=== PATIENT | male | born 1965 | race Caucasian/White ===

== ENCOUNTER 2017-04-21 21:47 | Observation (INO) | payer OTHER, MEDICARE ==
[~2017-04-21] VITALS: Ht 190.5 cm; Wt 108.3 kg
[~2017-04-21 21:47] MED LIST: BENZ100C4 PO; CITA40 PO; DUONI INH; FOLITAB6 PO; FURO20 PO; GABA250S PO; LACT20SO4 PO; MORP10S PO; MULT-65 PO; NADO20TA PO; PRIL40CA PO; PROC1TAB8 PO; SPIR100 PO; XANA0.5T PO
[2017-04-21 22:00] VITALS: BP 103/65; PULSE 73; RESP 16; TEMP 97.8; O2SAT 98
[2017-04-21] MEDS ORDERED: CITA40TA4 PO (22:25)
[2017-04-21] MEDS ORDERED: FOLI800T PO (22:25)
[2017-04-21] MEDS ORDERED: GABA600T PO (22:25)
[2017-04-21] MEDS ORDERED: ALPR0.5T3 PO (22:25)
[2017-04-21] MEDS ORDERED: NADO20TA PO (22:25)
[2017-04-21] MEDS ORDERED: FURO1TAB60 PO (22:25)
--- NOTE | 2017-04-21 22:59 | PD ---
HPI Chief Complaint: Skin Problem Time Seen by Provider: 22:45 Travel History International Travel<30 days: No Contact w/Intl Traveler<30days: No Traveled to known affect area: No History of Present Illness HPI 52-year-old male with history of cirrhosis secondary to alcohol abuse, here for evaluation of right lower extremity erythema and possible infection. The patient has an obvious wound on his distal right second toe with diffuse edema and erythema to this toe and has red streaks up his leg. He reports that he has had a wound on his toe for several days now, however today he noticed red streaks up his right leg. He denies pain. He does not believe he has had a fever. He denies history of diabetes. PFSH Past Medical History Anxiety: Yes Depression: Yes Cancer: No Cardiovascular Problems: No Diminished Hearing: No Endocrine: No Gastrointestinal Disorders: Yes Genitourinary: No Hepatitis: Yes Immune Disorder: No Implanted Vascular Access Dvce: No Musculoskeletal: No Neurologic: Yes (TURRETS SYNDROME) Psychiatric: Yes Reproductive: No Respiratory: No Tetanus Vaccination: Unknown Influenza Vaccination: No Past Surgical History Abdominal Surgery: Yes (HERNIA REPAIR) Oral Surgery: Yes (TONSILLECTOMY) Pacemaker: No Other Surgery: Yes (HERNIA REPAIR 2007) Social History Alcohol Use: Yes (FORMER DRINKER SOBER 5 MONTHS) Tobacco Use: No Substance Use: No Allergies-Medications (Allergen,Severity, Reaction): Coded Allergies: No Known Allergies (Unverified Adverse Reaction, Unknown, 04/21/17) Reported Meds & Prescriptions Reported Meds & Active Scripts Active Reported Nadolol 20 Mg Tab 20 Mg PO DAILY Folic Acid 0.8 Mg Tab 800 Mcg PO DAILY Alprazolam 0.5 Mg Tab 0.5 Mg PO Q8H PRN Citalopram (Citalopram Hydrobromide) 40 Mg Tab 40 Mg PO DAILY Lasix (Furosemide) 40 Mg Tab 40 Mg PO DAILY Gabapentin 600 Mg Tab 600 Mg PO BID Review of Systems Except as stated in HPI: all other systems reviewed are Neg Physical Exam Narrative GENERAL: Well-developed, well-nourished, comfortable, no apparent distress. SKIN: Right second toe with diffuse erythema and edema with a distal open wound with purulence. There are red streaks and warmth up the right foot tracking up to the right knee. There is no crepitus. HEAD: Atraumatic. Normocephalic. EYES: Pupils equal and round. No scleral icterus. No injection or drainage. ENT: Mucous membranes pink and moist. NECK: Trachea midline. No JVD. CARDIOVASCULAR: Regular rate and rhythm. Bilateral dorsalis pedis pulses are palpable, 1+. RESPIRATORY: No accessory muscle use. Clear to auscultation. Breath sounds equal bilaterally. GASTROINTESTINAL: Abdomen soft, non-tender, nondistended. MUSCULOSKELETAL: No obvious deformities. No clubbing. No cyanosis. Mild right foot and leg edema with skin exam as above. No crepitus. All compartments in the right lower extremity are supple. NEUROLOGICAL: Awake and alert. No obvious cranial nerve deficits. Motor grossly within normal limits. Normal speech. PSYCHIATRIC: Appropriate mood and affect; insight and judgment normal. Data Data Last Documented VS Vital Signs Date Time Temp Pulse Resp B/P (MAP) Pulse Ox O2 Delivery O2 Flow Rate FiO2 04/21/17 23:31 70 18 105/60 (75) 98 Room Air 04/21/17 22:00 97.8 Orders Orders Sepsis Workup Initiated (04/21/17 ) Complete Blood Count With Diff (04/21/17 22:50) Comprehensive Metabolic Panel (04/21/17 22:50) Prothrombin Time / Inr (Pt) (04/21/17 22:50) Act Partial Throm Time (Ptt) (04/21/17 22:50) Lactic Acid Sepsis Protocol (04/21/17 22:50) Blood Culture (04/21/17 22:50) Ecg Monitoring (04/21/17 22:50) Iv Access Insert/Monitor (04/21/17 22:50) Oximetry (04/21/17 22:50) Vancomycin Inj (Vancomycin Inj) (04/21/17 23:00) Foot, Complete (Lcc5opd) (04/21/17 ) Westergren Sedimentation Rate (04/21/17 22:50) C-Reactive Protein (Crp) (04/21/17 22:50) Wound Culture And Gram Stain (04/21/17 22:55) Labs Laboratory Tests Test 04/21/17 22:40 04/21/17 23:00 White Blood Count 5.7 TH/MM3 Red Blood Count 4.35 MIL/MM3 Hemoglobin 13.5 GM/DL Hematocrit 40.3 % Mean Corpuscular Volume 92.8 FL Mean Corpuscular Hemoglobin 31.0 PG Mean Corpuscular Hemoglobin Concent 33.5 % Red Cell Distribution Width 13.2 % Platelet Count 100 TH/MM3 Mean Platelet Volume 10.2 FL Neutrophils (%) (Auto) 74.4 % Lymphocytes (%) (Auto) 12.4 % Monocytes (%) (Auto) 11.9 % Eosinophils (%) (Auto) 0.8 % Basophils (%) (Auto) 0.5 % Neutrophils # (Auto) 4.3 TH/MM3 Lymphocytes # (Auto) 0.7 TH/MM3 Monocytes # (Auto) 0.7 TH/MM3 Eosinophils # (Auto) 0.0 TH/MM3 Basophils # (Auto) 0.0 TH/MM3 CBC Comment DIFF FINAL Differential Comment Erythrocyte Sedimentation Rate 28 mm/hr Prothrombin Time 11.9 SEC Prothromb Time International Ratio 1.2 RATIO Activated Partial Thromboplast Time 25.3 SEC Blood Urea Nitrogen 15 MG/DL Creatinine 0.82 MG/DL Random Glucose 92 MG/DL Total Protein 7.4 GM/DL Albumin 3.4 GM/DL Calcium Level 8.8 MG/DL Alkaline Phosphatase 75 U/L Aspartate Amino Transf (AST/SGOT) 18 U/L Alanine Aminotransferase (ALT/SGPT) 25 U/L Total Bilirubin 0.7 MG/DL Sodium Level 136 MEQ/L Potassium Level 4.1 MEQ/L Chloride Level 102 MEQ/L Carbon Dioxide Level 29.2 MEQ/L Anion Gap 5 MEQ/L Estimat Glomerular Filtration Rate 98 ML/MIN Lactic Acid Level 1.3 mmol/L MDM Medical Decision Making Medical Screen Exam Complete: Yes Emergency Medical Condition: Yes Differential Diagnosis Cellulitis, toe abscess, osteomyelitis, sepsis, Narrative Course Vital signs show heart rate 73, blood pressure 103/65, pulse ox 90% on room air , oral temp of 97.8F. CBC: WBC 5.7, hemoglobin 13.5, hematocrit 40.3, platelets 100, neutrophils 74.4% . CMP is unremarkable. Lactic acid is 1.3. ESR is 28. Right foot x-ray: CONCLUSION: 1. Soft tissue ulceration distally the second toe without radiographic evidence of bone destruction or foreign body. 2. Second through fifth hammertoe. 3. Chronic appearing arthropathy at Lisfranc joint and the first metatarsal phalangeal joints are sesamoids. Patient and the patient's were made aware of all findings. His right second toe is diffusely swollen with distal ulceration with purulence. He has warmth and erythema throughout his right foot and leg. All compartments in the right lower extremity are supple. There is no crepitus to his right foot/leg. Although the patient's labs are benign, his clinical exam is impressive, and I believe that the patient may need to have his right second toe debrided in the OR by podiatry. He also has signs of lymphangitis and may have osteomyelitis in the right second toe. He was given 1 g of IV vancomycin will be admitted for further IV antibiotic therapy and podiatry consultation. Both the patient and the patient's were made aware of all findings and plan for admission. Case discussed with hospitalist Dr. Carter who will admit the patient to the hospitalist service. Diagnosis Primary Impression: Toe ulcer, right Qualified Codes: L97.519 - Non-pressure chronic ulcer of other part of right foot with unspecified severity Additional Impressions: Cellulitis of right lower extremity Acute lymphangitis of right lower extremity R/O Osteomyelitis Admitting Information Admitting Physician Requests: Admit Parker Huffman MD Apr 21, 2017 22:59
[2017-04-21] MEDS ORDERED: VANCOMYCIN INJ 1,000 MG in SODIUM CHLOR 0.9% 250 ML INJ 250 ML IV ONE (23:00)
[2017-04-21 23:25] LABS: AUTOMATED NEUTROPHIL # 4.3 TH/MM3 (1.8-7.7); BASOPHIL % 0.5 % (0.0-2.0); EOSINOPHIL % 0.8 % (0.0-4.0); HEMATOCRIT 40.3 % (39.0-51.0); HEMOGLOBIN 13.5 GM/DL (13.0-17.0); LYMPH % 12.4 % (9.0-44.0); LYMPHOCYTE # 0.7 TH/MM3 (1.0-4.8); MEAN CELL VOLUME 92.8 FL (80.0-100.0); MEAN CORPUSCULAR HGB CONC 33.5 % (32.0-36.0); MEAN PLATELET VOLUME 10.2 FL (7.0-11.0); MONO % 11.9 % (0.0-8.0); MONOCYTE # 0.7 TH/MM3 (0-0.9); NEUT % 74.4 % (16.0-70.0); PLATELET COUNT 100 TH/MM3 (150-450); RED BLOOD COUNT 4.35 MIL/MM3 (4.50-5.90); RED CELL DISTRIBUTION WIDTH 13.2 % (11.6-17.2); WHITE BLOOD COUNT 5.7 TH/MM3 (4.0-11.0)
[2017-04-21 23:30] VITALS: O2SAT 97
[2017-04-21 23:31] VITALS: BP 105/60; PULSE 70; RESP 18; O2SAT 98
[2017-04-21 23:31] LABS: CHLORIDE 102 MEQ/L (98-107); SODIUM (NA) 136 MEQ/L (136-145)
[2017-04-21 23:34] LABS: CALCIUM 8.8 MG/DL (8.5-10.1)
[2017-04-21 23:35] LABS: ALBUMIN 3.4 GM/DL (3.4-5.0); BICARBONATE 29.2 MEQ/L (21.0-32.0); BLOOD UREA NITROGEN 15 MG/DL (7-18); GLUCOSE,RANDOM 92 MG/DL (74-106)
[2017-04-21 23:36] LABS: INTERNATIONAL NORMALIZED RATIO 1.2 RATIO; PROTHROMBIN TIME - PATIENT 11.9 SEC (9.8-11.6)
[2017-04-21 23:38] LABS: ALT (GPT) 25 U/L (12-78); AST (GOT) 18 U/L (15-37); CREATININE 0.82 MG/DL (0.60-1.30); GLOMERULAR FILTRATION RATE 98 ML/MIN (>89)
[2017-04-21 23:39] LABS: TOTAL BILIRUBIN ADULT 0.7 MG/DL (0.2-1.0)
[2017-04-21 23:40] LABS: TOTAL PROTEIN 7.4 GM/DL (6.4-8.2)
[2017-04-21 23:41] LABS: ALKALINE PHOSPHATASE 75 U/L (45-117)
--- NOTE | 2017-04-21 23:46 | RADRPT ---
EXAM DATE/TIME: 04/21/2017 23:11 [facility] COMPARISON: No previous studies available for comparison. INDICATIONS : Open sore on right 2nd digit for 3 months with no pain MEDICAL HISTORY : None. SURGICAL HISTORY : None. ENCOUNTER: Initial ACUITY: 3 months PAIN SCORE: 0/10 LOCATION: Right 2nd digit FINDINGS: There is alteration distally of the soft tissues of the second toe. No radiopaque foreign body seen. No or separable bone destruction. There is second through fifth hammertoe. 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 There is also mild to moderate osteoarthritis of the first metatarsophalangeal joint and sesamoids. CONCLUSION: 1. Soft tissue ulceration distally the second toe without radiographic evidence of bone destruction o r foreign body. 2. Second through fifth hammertoe. 3. Chronic appearing arthropathy at Lisfranc joint and the first metatarsal phalangeal joints are ses amoids. Donte Arambula MD on April 21, 2017 at 23:43 Board Certified Radiologist. This report was verified electronically.
[2017-04-22] MEDS ORDERED: NALOXONE HCL 0.4 MG/ML AMP IV PUSH PRN
[2017-04-22] MEDS ORDERED: LACTULOSE SYRUP 20 GM/30 ML CUP PO PRN
[2017-04-22] MEDS ORDERED: SENNOSIDES 8.6 MG TAB PO PRN
[2017-04-22] MEDS ORDERED: MAGNESIUM HYDROXIDE SUSP 30 ML CUP PO PRN
[2017-04-22] MEDS ORDERED: SODIUM CHLORIDE 0.9% FLUSH 10 ML FLUSH IV FLUSH PRN
[2017-04-22] MEDS ORDERED: BISACODYL 10 MG SUPP RECTAL PRN
[2017-04-22] MEDS ORDERED: Vancomycin Consult Pharmacy 1 EA OTHER SCH
[2017-04-22] MEDS ORDERED: ONDANSETRON HCL 4 MG/2 ML VIAL IVP PRN
[2017-04-22 00:37] VITALS: BP 108/62; PULSE 68; RESP 18; O2SAT 98
[2017-04-22 00:41] VITALS: BP 102/68; PULSE 64; RESP 20; TEMP 97.3; O2SAT 99
[2017-04-22] MEDS ORDERED: VANCOMYCIN 1 GM/200 ML PREMIX IV ONE (00:45)
[2017-04-22 01:03] LABS: C-REACTIVE PROTEIN 4.63 MG/DL (0.00-0.30)
[2017-04-22] MEDS: PIPERACIL-TAZO 3.375 GM PREMIX 50 ML IV SCH ×5 (02:10→23:17)
[2017-04-22 07:21] LABS: AUTOMATED NEUTROPHIL # 3.8 TH/MM3 (1.8-7.7); BASOPHIL # 0.1 TH/MM3 (0-0.2); BASOPHIL % 1.3 % (0.0-2.0); EOSINOPHIL # 0.1 TH/MM3 (0-0.4); EOSINOPHIL % 1.4 % (0.0-4.0); HEMATOCRIT 37.6 % (39.0-51.0); LYMPH % 17.2 % (9.0-44.0); LYMPHOCYTE # 0.9 TH/MM3 (1.0-4.8); MEAN CELL VOLUME 92.4 FL (80.0-100.0); MEAN CORPUSCULAR HGB CONC 34.7 % (32.0-36.0); MEAN PLATELET VOLUME 10.7 FL (7.0-11.0); MONO % 11.4 % (0.0-8.0); MONOCYTE # 0.6 TH/MM3 (0-0.9); NEUT % 68.7 % (16.0-70.0); PLATELET COUNT 99 TH/MM3 (150-450); RED BLOOD COUNT 4.07 MIL/MM3 (4.50-5.90); RED CELL DISTRIBUTION WIDTH 13.3 % (11.6-17.2); WHITE BLOOD COUNT 5.5 TH/MM3 (4.0-11.0)
[2017-04-22 07:27] LABS: CHLORIDE 100 MEQ/L (98-107); SODIUM (NA) 135 MEQ/L (136-145)
[2017-04-22 07:34] LABS: ALBUMIN 3.2 GM/DL (3.4-5.0); BICARBONATE 28.7 MEQ/L (21.0-32.0); CALCIUM 8.5 MG/DL (8.5-10.1); GLUCOSE,RANDOM 81 MG/DL (74-106)
[2017-04-22 07:35] LABS: BLOOD UREA NITROGEN 13 MG/DL (7-18)
[2017-04-22 07:38] LABS: ALT (GPT) 22 U/L (12-78); AST (GOT) 13 U/L (15-37); CREATININE 0.76 MG/DL (0.60-1.30); GLOMERULAR FILTRATION RATE 107 ML/MIN (>89)
[2017-04-22 07:39] LABS: TOTAL BILIRUBIN ADULT 0.9 MG/DL (0.2-1.0); TOTAL PROTEIN 7.2 GM/DL (6.4-8.2)
[2017-04-22 07:40] LABS: ALKALINE PHOSPHATASE 67 U/L (45-117)
[2017-04-22] MEDS ORDERED: ALPRAZolam 0.5 MG TAB PO PRN (08:45)
[2017-04-22 09:00] VITALS: BP 116/74; PULSE 70; RESP 16; TEMP 97.1; O2SAT 98
[2017-04-22] MEDS: HEPARIN SODIUM - SQ 10,000 UNITS/ML VIAL SQ SCH ×3 (09:11→21:50)
[2017-04-22] MEDS: DOCUSATE SODIUM 50 MG/SENNA 8.6 MG TAB PO SCH ×2 (09:13→21:00)
[2017-04-22] MEDS: SODIUM CHLORIDE 0.9% FLUSH 10 ML FLUSH IV FLUSH SCH ×2 (09:13→21:49)
[2017-04-22] MEDS: FUROSEMIDE 40 MG TAB PO SCH (09:19)
[2017-04-22] MEDS: CITALOPRAM HYDROBROMIDE 40 MG TAB PO SCH (09:19)
--- NOTE | 2017-04-22 09:20 | HHI.HP ---
[facility] Service [facility] Hospitalists Primary Care Physician Damaso Lima MD Admission Diagnosis right toe ulcer with cellulitis and lymphangitis, r/o osteomyelitis Diagnoses: Travel History International Travel<30 Days: No Contact w/Intl Traveler <30 Da: No Traveled to Known Affected Are: No History of Present Illness Patient is a 52-year-old male with past medical history of cirrhosis of the liver, EtOH abuse, neuropathy, depression/anxiety, history of Tourette's syndrome, presented to the emergency room with right lower extremity erythema. Patient states he does have recurrent infection of his second toe. Has not seen a anchor operator in many years, the last one he saw was Dr. Monge who had trimmed his toenail for him. He noticed that the nail has been getting bigger and bulky and he decided to cut it and peel it off. Yesterday when he woke up, he noted redness going up to his knee. He denies any pain. He denies any fevers or chills. He states that the ulceration at the base of his toe has not been draining however yesterday started draining clear fluid. They did get a swab in the emergency room. He has been cleaning it with hydrogen peroxide. Otherwise, he has no other complaints. He denies any chest pain, shortness of breath, nausea or vomiting, abdominal pain. Review of Systems Except as stated in HPI: all other systems reviewed are Neg Past Family Social History Past Medical History cirrhosis of the liver, EtOH abuse, neuropathy, depression/anxiety, history of Tourette's syndrome Past Surgical History Hernia repair with mesh, tonsillectomy Reported Medications Reported Meds & Active Scripts Active Reported Nadolol 20 Mg Tab 20 Mg PO DAILY Folic Acid 0.8 Mg Tab 800 Mcg PO DAILY Alprazolam 0.5 Mg Tab 0.5 Mg PO Q8H PRN Citalopram (Citalopram Hydrobromide) 40 Mg Tab 40 Mg PO DAILY Lasix (Furosemide) 40 Mg Tab 40 Mg PO DAILY Gabapentin 600 Mg Tab 600 Mg PO BID Allergies: Coded Allergies: No Known Allergies (Unverified Allergy, Unknown, 04/22/17) Family History Mother had osteoporosis. Father with heart problems Social History Quit drinking 5 years ago used to drink 12 packs daily for very long time. He does admit that he will occasionally have a beer and his last one was on Tuesday. He then tells me that he usually drinks 3 beers a month. Denies illegal drug use, quit smoking 8-9 years ago used to smoke a pack a day for 4 years Physical Exam Vital Signs Vital Signs Date Time Temp Pulse Resp B/P (MAP) Pulse Ox O2 Delivery O2 Flow Rate FiO2 04/22/17 00:41 97.3 64 20 102/68 (79) 99 04/22/17 00:38 68 18 98 04/22/17 00:37 68 18 108/62 (77) 98 Room Air 04/21/17 23:31 70 18 105/60 (75) 98 Room Air 04/21/17 23:30 97 04/21/17 22:25 73 18 04/21/17 22:00 97.8 73 16 103/65 (78) 98 Physical Exam GENERAL: This is a well-nourished, well-developed patient, laying in bed. he does have a tic SKIN: Right second toe with edema, skin/nail overgrowth, ulceration at the base w clear drainage. erythema noted on the right leg up to the knee EYES: Pupils equal round and reactive. Extraocular motions intact. ENT: Nose without drainage. Airway patent. NECK: Trachea midline. CARDIOVASCULAR: Regular rate and rhythm without murmurs RESPIRATORY: Clear to auscultation. Breath sounds equal bilaterally. No wheezes GASTROINTESTINAL: Abdomen soft, non-tender, nondistended. No guarding. MUSCULOSKELETAL: edema noted on the right lower ext, michael wrapped but this was removed to visualize extent of erythema. No calf tenderness. Negative Homans sign bilaterally. NEUROLOGICAL: Awake and alert. Cranial nerves II through XII intact. Motor and sensory grossly within normal limits. Normal speech. Laboratory Laboratory Tests Test 04/21/17 22:40 04/21/17 23:00 04/22/17 05:40 White Blood Count 5.7 5.5 Red Blood Count 4.35 4.07 Hemoglobin 13.5 13.0 Hematocrit 40.3 37.6 Mean Corpuscular Volume 92.8 92.4 Mean Corpuscular Hemoglobin 31.0 32.0 Mean Corpuscular Hemoglobin Concent 33.5 34.7 Red Cell Distribution Width 13.2 13.3 Platelet Count 100 99 Mean Platelet Volume 10.2 10.7 Neutrophils (%) (Auto) 74.4 68.7 Lymphocytes (%) (Auto) 12.4 17.2 Monocytes (%) (Auto) 11.9 11.4 Eosinophils (%) (Auto) 0.8 1.4 Basophils (%) (Auto) 0.5 1.3 Neutrophils # (Auto) 4.3 3.8 Lymphocytes # (Auto) 0.7 0.9 Monocytes # (Auto) 0.7 0.6 Eosinophils # (Auto) 0.0 0.1 Basophils # (Auto) 0.0 0.1 CBC Comment DIFF FINAL AUTO DIFF Differential Comment AUTO DIFF CONFIRMED Erythrocyte Sedimentation Rate 28 Prothrombin Time 11.9 Prothromb Time International Ratio 1.2 Activated Partial Thromboplast Time 25.3 Blood Urea Nitrogen 15 13 Creatinine 0.82 0.76 Random Glucose 92 81 Total Protein 7.4 7.2 Albumin 3.4 3.2 Calcium Level 8.8 8.5 Alkaline Phosphatase 75 67 Aspartate Amino Transf (AST/SGOT) 18 13 Alanine Aminotransferase (ALT/SGPT) 25 22 Total Bilirubin 0.7 0.9 Sodium Level 136 135 Potassium Level 4.1 3.7 Chloride Level 102 100 Carbon Dioxide Level 29.2 28.7 Anion Gap 5 6 Estimat Glomerular Filtration Rate 98 107 C-Reactive Protein 4.63 Lactic Acid Level 1.3 Platelet Estimate LOW Platelet Morphology Comment NORMAL Date/Time Source Procedure Growth Status 04/21/17 23:05 Blood Peripheral Aerobic Blood Culture Pending Received 04/21/17 23:05 Blood Peripheral Anaerobic Blood Culture Pending Received 04/21/17 23:10 Wound Toe Gram Stain - Final Resulted 04/21/17 23:10 Wound Toe Wound Culture Pending Resulted Result Diagram: 04/22/17 0540 04/22/17 0540 Imaging Last Impressions Foot X-Ray 04/21/17 0000 Signed Impressions: Service Date/Time: March 23:11 - CONCLUSION: 1. Soft tissue ulceration distally the second toe without radiographic evidence of bone destruction or foreign body. 2. Second through fifth hammertoe. 3. Chronic appearing arthropathy at Lisfranc joint and the first metatarsal phalangeal joints are sesamoids. MD Fabrizio Landisi VTE Risk Assessment Caprini VTE Risk Assessment: Mod/High Risk (score >= 2) Caprini Risk Assessment Model Point Value = 1 Point Value = 2 Point Value = 3 Point Value = 5 Age 41-60 Minor surgery BMI > 25 kg/m2 Swollen legs Varicose veins or History of unexplained or recurrent spontaneous Oral contraceptives or hormone replacement Sepsis (< 1 month) Serious lung disease, including pneumonia (< 1 month) Abnormal pulmonary function Acute myocardial infarction Congestive heart failure (< 1 month) History of inflammatory bowel disease Medical patient at bed rest Age 61-74 Arthroscopic surgery Major open surgery (> 45 min) Laparoscopic surgery (> 45 min) Malignancy Confined to bed (> 72 hours) Immobilizing plaster cast Central venous access Age >= 75 History of VTE Family history of VTE Factor V Leiden Prothrombin [id number] Lupus anticoagulant Anticardiolipin antibodies Elevated serum homocysteine Heparin-induced thrombocytopenia Other congenital or acquired thrombophilia Stroke (< 1 month) Elective arthroplasty Hip, pelvis, or leg fracture Acute spinal cord injury (< 1 month) Prophylaxis Regimen Total Risk Factor Score Risk Level Prophylaxis Regimen 0-1 Low Early ambulation 2 Moderate Order ONE of the following: *Sequential Compression Device (SCD) *Heparin 5000 units SQ BID 3-4 Higher Order ONE of the following medications: *Heparin 5000 units SQ TID *Enoxaparin/Lovenox 40 mg SQ daily (WT < 150 kg, CrCl > 30 mL/min) *Enoxaparin/Lovenox 30 mg SQ daily (WT < 150 kg, CrCl > 10-29 mL/min) *Enoxaparin/Lovenox 30 mg SQ BID (WT < 150 kg, CrCl > 30 mL/min) AND/OR *Sequential Compression Device (SCD) 5 or more Highest Order ONE of the following medications: *Heparin 5000 units SQ TID (Preferred with Epidurals) *Enoxaparin/Lovenox 40 mg SQ daily (WT < 150 kg, CrCl > 30 mL/min) *Enoxaparin/Lovenox 30 mg SQ daily (WT < 150 kg, CrCl > 10-29 mL/min) *Enoxaparin/Lovenox 30 mg SQ BID (WT < 150 kg, CrCl > 30 mL/min) AND *Sequential Compression Device (SCD) Assessment and Plan Assessment and Plan right toe infection w right leg cellulitis: cellulitis started since yesterday. Pt hasn't been followed recently by a anchor operator. Podiatry was consulted and did evaluate pt this morning. MRI of the foot has been ordered w dressing changes ordered. Official report pending. Per pt, there is concern for the need for right toe amputation. Await podiatry recs. Pt currently on vanc and zosyn IV and will continue at this time. Monitor Cr closely as pt is on vanco. Will consult ID for further recs. wound cx and blood cx pending. Pt's other chronic medical conditions: stable.(i.e cirrhosis of the liver, EtOH abuse, neuropathy, depression/anxiety, history of Tourette's syndrome). home meds have been resumed. I will place pt on CIWA protocol due to his EtOH hx and he admitted to drinking this week although one beer on tuesday. Monitor him closely. Mild hyponatremia: Na 135. monitor. DVT proph: heparin Code Status full Discussed Condition With patient Alejandra Barakat MD Apr 22, 2017 09:20
[2017-04-22] MEDS ORDERED: LORazepam 2 MG TAB PO PRN (09:30)
[2017-04-22] MEDS ORDERED: FLUMAZENIL 0.5 MG/5 ML VIAL IV PUSH PRN (09:30)
[2017-04-22] MEDS ORDERED: LORazepam 1 MG TAB PO PRN (09:30)
[2017-04-22] MEDS ORDERED: HALOPERIDOL LACTATE 5 MG/ML AMP IM PRN (09:30)
[2017-04-22] MEDS ORDERED: LORazepam 2 MG/ML VIAL IV PUSH PRN ×4 (09:30)
[2017-04-22] MEDS: NADOLOL 20 MG TAB PO SCH (10:39)
[2017-04-22] MEDS: FOLIC ACID 1 MG TAB PO SCH (10:39)
[2017-04-22] MEDS: GABAPENTIN 300 MG CAP PO SCH ×2 (10:40→21:50)
[2017-04-22] MEDS: THIAMINE HCL 100 MG TAB PO SCH (10:41)
[2017-04-22] MEDS ORDERED: VANCOMYCIN INJ 1,000 MG in SODIUM CHLOR 0.9% 250 ML INJ 250 ML IV SCH (11:00)
[2017-04-22] MEDS ORDERED: GADODIAMIDE PF 287 MG/ML 20 ML VIAL (for RAD MRI) IVCONTRAST ONE (11:00)
[2017-04-22 12:00] VITALS: BP 97/59; PULSE 65; RESP 16; TEMP 97.2; O2SAT 98
--- NOTE | 2017-04-22 12:35 | RADRPT ---
EXAM DATE/TIME: 04/22/2017 11:05 [facility] COMPARISON: No previous studies available for comparison. INDICATIONS : Osteomyelitis. Right foot second digit. CONTRAST: 20 cc Omniscan (gadodiamide) IV MEDICAL HISTORY : Cirrhosis. SURGICAL HISTORY : Inguinal hernia repair. Tonsillectomy. ENCOUNTER: Initial ACUITY: 4-6 days PAIN SCORE: 0/10 LOCATION: Right foot TECHNIQUE: Multiplanar, multisequence MRI examination was performed without contrast and after the intravenous a dministration of gadolinium. FINDINGS: There is soft tissue swelling and some ulceration at the distal second toe. No significant marrow sig nal abnormality of marrow enhancement is seen to suggest osteomyelitis. No osteomyelitis seen the rem ainder of the right foot. There is advanced arthropathy at the tarsometatarsal joints with hypertroph ic and cystic changes present. CONCLUSION: 1. No definite evidence for osteomyelitis. Soft tissue swelling and ulceration at the second toe. The re is some cellulitis. 2. Advanced arthropathy in the midfoot especially the tarsometatarsal joints with joint space narrowi ng, subchondral cystic changes and hypertrophic changes. Mic Neal MD on April 22, 2017 at 12:26 Board Certified Radiologist. This report was verified electronically.
[2017-04-22] MEDS: VANCOMYCIN INJ 2,000 MG in SODIUM CHLORID 0.9% 500 ML INJ 500 ML IV SCH ×2 (12:45→23:58)
--- NOTE | 2017-04-22 12:50 | MB ---
cc: FLORESITA HENLEY DPM DATE OF CONSULTATION: 04/22/2017 REASON FOR CONSULTATION: Right second digit ulcer cellulitis lower extremity leg and calf infection. HISTORY OF PRESENT ILLNESS This is an 52-year-old male who has a history of liver cirrhosis secondary alcohol abuse. He noticed significant increase in erythema and redness of his extremity. The patient relates he has had a long history of the right second toe and not looking good. He relates he has been this way for many months. However, in the last several days. There is a significant decline of his leg with redness and swelling. The patient denies having a fever. PAST MEDICAL HISTORY: Positive for depression Anxiety Liver cirrhosis Tourette syndrome. He last seen his primary care physician in January. PAST SURGICAL HISTORY: hernia repair tonsillectomy. SOCIAL HISTORY: He social history of former drinker. He states he has a beer about once per month. He is a retired local delivery truck driver. ALLERGIES None listed. OUTPATIENT MEDICATIONS 1. Nadolol 2. Folic acid. 3. Alprazolam 4. Citalopram 5. Lasix 6. Gabapentin INPATIENT MEDICATIONS: He is receiving . 1. Vancomycin. 2. Zosyn. Please see complete med list in chart. PHYSICAL EXAMINATION: VITAL SIGNS: Temperature is 97.3, pulse rate 64, respiratory rate 20, blood pressure was 102/68. He is satting on 99% on room air. This is an alert and oriented male seen bedside exhibiting nonlabored respirations. He is verbal, appropriate, bilateral lower extremities examined. Right lower extremity there is noted to be an unhealthy appearing right second digit with significant erythema, edema, contracture of the digit with distal eschar callus, borderline partial thickness ulcer. There is redness that extends to the foot with pitting edema. Upon palpating the foot there is no obvious soft tissue emphysema. There is good range of motion of the ankle. The posterior tibialis artery is hard to palpate through the edema but the dorsalis pedis is readily palpable in the foot appears to be warm. Sensation I believe is slightly decreased to light touch but overall intact to deep pressure there is significant expansile erythema that courses of the lateral aspect of the patient's calf to the proximal fibular head. There is no obvious signs of soft tissue edema upon compressing the deep compartments of the leg. He does not have an appearance of gas gangrene significant cellulitis is appreciated. There is a some concern for proximal spread however, the patient verifies that has improved within the last 8-12 hours. LABORATORY FINDINGS White blood cell 5.7, hemoglobin/hematocrit 13 and 40, platelet count is 100. Chem-7 sodium is 136, potassium 4.1, chloride 102, CO2 29.2, BUN is 15, creatinine 0.82, AST 18, ALT 25. C-reactive protein 4.63. Coagulation profile PT 11.9, INR 1.2. Microbial findings wound culture ordered and pending blood cultures ordered and pending. IMAGING FINDINGS: X-RAYS - Soft tissue ulceration of the toe without radiographic evidence of bony destruction chronic history of staring Lisfranc's arthropathy no gas noted in the tissue. ASSESSMENT/PLAN Right second digit ulcer cellulitis, rule out osteomyelitis with lower extremity cellulitis, edema. PLAN MRI ordered to rule out signs of bone infection. The patient has a history of chronic ulcer. There is a chance that now there needs to be a discussion of the right second digit amputation secondary to the deformity and severity the infection. My recommendation regarding the leg as to compress and elevate and monitor cellulitis. I do not think that a MRI of the calf and proximal leg needs to be performed at this point, however, this cellulitis if there is no improvement, may recommend. I educated the patient on these findings in that he will need a minimum of 1-2 days of IV antibiotics. He was not happy with this. I will continue to follow along. Thank you for this consultation. MADDI Mcbride/jagjit /6:54 AM /12:24 PM KATERYNA
[2017-04-22 16:00] VITALS: BP 104/59; PULSE 58; TEMP 95; O2SAT 100
--- NOTE | 2017-04-22 17:21 | MB ---
cc: NORBERT GARLAND MD DATE OF CONSULTATION 04/22/[address] Barakat REASON FOR CONSULTATION Evaluate for worsening right second toe and leg cellulitis. HISTORY OF PRESENT ILLNESS This is a 52-year-old white male who presented to emergency department yesterday, 04/21/2017, with erythema and edema of his right second toe and also streaks of redness going up his leg and severe erythema of the right leg. The patient was noted to have the streaks appear approximately two days before admission and he presented to emergency department. He states that he has had a problem with the second toe for about a month. He was using clippers to clip the toenail and to clip excess skin. He was evaluated in the emergency department and admitted to the hospital for further management. The culture from the right second toe wound has gram-positive cocci. The patient states that he has sometimes gets a tingling sensation in the feet, but he denies history of diabetes. He was started on IV antibiotics yesterday. He thinks the erythema of his right leg is better today. He still, however, has significant redness from the knee down to the ankle on the right leg. He states that he had chills over the past couple of days. The patient has a macerated area of the tuft of the right second toe. Currently, I see no significant drainage, but he reportedly had clear drainage coming from the wound at the second toe where the maceration is located. PAST MEDICAL HISTORY 1. Alcohol abuse in the past. 2. Neuropathy 3. Cirrhosis of the liver 4. Anxiety/depression 5. Turrets syndrome 6. History of hernia repair, 7. Tonsillectomy. ALLERGIES NO KNOWN DRUG ALLERGIES. MEDICATIONS 1. Vancomycin. 2. Piperacillin/tazobactam. 3. Folic acid. 4. Neurontin. 5. Corgard 6. Thiamine 7. Bella-Colace. 8. Celexa. 9. Lasix IV 10. Xanax p.r.n. SOCIAL HISTORY The patient denies tobacco use. He has a alcoholic beer about once a week. He denies illicit drugs. The patient is . He is unemployed. FAMILY HISTORY Significant for borderline diabetes in his dad. REVIEW OF SYSTEMS CONSTITUTIONAL: Positive for chills. HEENT: Denies visual difficulties. Denies difficulty swallowing. CARDIOVASCULAR: Denies chest pain or palpitations. RESPIRATORY: Denies shortness of breath. GASTROINTESTINAL: Denies nausea, vomiting, abdominal pain or diarrhea. GENITOURINARY: Denies dysuria. ENDOCRINE: The patient notes polydipsia and polyuria. MUSCULOSKELETAL: Denies muscle aches or pains. NEUROLOGIC: Reports occasional dizziness. PSYCHIATRIC: Denies mood changes. PHYSICAL EXAMINATION GENERAL: This is a well-developed male who is in no acute distress. He is awake, alert and oriented. VITAL SIGNS: Temperature 97.2, BP 97/59, respirations 16, heart rate 65. HEENT: Head atraumatic. Extraocular movements grossly intact, pupils reactive to light. No icterus. Oropharynx moist mucosa without lesions. NECK: Supple without adenopathy. LUNGS: Clear breath sounds bilaterally. The breath sounds are diminished. HEART: Regular S1 and S2 without murmurs, rubs or gallops. ABDOMEN: Bowel sounds present, soft, no tenderness appreciated. No masses palpable. RECTAL: Not performed. EXTREMITIES: No clubbing or cyanosis or edema. 1+ edema at the right lower extremity. There is erythema at the right lower extremity from the ankle to the knee. The right second toe is erythematous and there is a macerated area at the tuft of the toe. The toe is also enlarged at the distal aspect. SKIN: No diffuse rash. NEUROLOGIC: No gross focal findings. PSYCHIATRIC: Patient calm and cooperative. LABORATORY DATA WBC 5.5, platelets 99, hemoglobin 13.0, 68% neutrophils, 17% lymphocytes. Sed rate 28. Liver function tests normal. Creatinine 0.76, estimated GFR 107, blood cultures no growth. IMAGING STUDIES MRI of the right foot reveals soft tissue swelling and ulceration at the distal second toe. No significant marrow signal abnormality of the second toe to suggest osteomyelitis. IMPRESSION 1. Soft tissue infection of the right second toe with ulceration. Culture showing gram-positive bacteria. Final ID is pending. 2. Cellulitis of the right lower extremity with infection spreading from the right second toe. 3. Plain x-ray of the right foot shows second through fifth hammertoe. RECOMMENDATIONS 1. Continue vancomycin 2. Continue piperacillin/Tazobactam 3. Follow the wound culture for antibiotic adjustments. If the gram-positive cocci is MRSA, the patient will likely need to be treated with intravenous antibiotics for the entire treatment for this infection. However, the culture will need to be followed to determine actual antibiotic treatment. Because of absence of osteomyelitis, he should not require a long course of the antibiotic treatment. Thank you for this consultation. Norbert Garland MD FD/ /2:31 PM /4:44 PM
[2017-04-22 20:00] VITALS: BP 120/71; PULSE 62; RESP 20; TEMP 96.1; O2SAT 99
[2017-04-23] VITALS: BP 110/67; PULSE 70; RESP 20; TEMP 96.6; O2SAT 98
[2017-04-23] MEDS: PIPERACIL-TAZO 3.375 GM PREMIX 50 ML IV SCH ×3 (05:11→17:34)
[2017-04-23] MEDS: HEPARIN SODIUM - SQ 10,000 UNITS/ML VIAL SQ SCH ×3 (05:11→21:53)
--- NOTE | 2017-04-23 07:19 | PD.POD ---
Subjective Pain score: 1 Remarks Feels better, patient apparently understands more about what is needed as more content staying in the hospital receiving correct care Past Med/Surg/Social History Social History Smoking Status: Former Smoker Objective Vital Signs Vital Signs Date Time Temp Pulse Resp B/P (MAP) Pulse Ox O2 Delivery O2 Flow Rate FiO2 04/23/17 00:00 96.6 70 20 110/67 (81) 98 04/22/17 20:00 96.1 62 20 120/71 (87) 99 04/22/17 16:00 95.0 58 104/59 (74) 100 04/22/17 12:00 97.2 65 16 97/59 (72) 98 04/22/17 09:00 97.1 70 16 116/74 (88) 98 Coded Allergies: No Known Allergies (Unverified Allergy, Unknown, 04/22/17) Medications and IVs Administered Medications Medications (Trade) Dose Ordered Sig/Darian Route PRN Reason Start Time Stop Time Status Last Admin Dose Admin Sodium Chloride (NS Flush) 2 ml BID IV FLUSH 04/22/17 09:00 04/22/17 21:49 Heparin Sodium (Porcine) (Heparin Inj) 5,000 units Q8HR SQ 04/22/17 08:00 04/23/17 05:11 Senna/Docusate Sodium (Bella-Colace) 1 tab BID PO 04/22/17 09:00 04/22/17 09:13 Piperacillin Sod/ Tazobactam Sod 50 ml @ 100 mls/hr Q6HR IV 04/22/17 00:30 04/23/17 05:11 Vancomycin HCl 2000 mg/Sodium Chloride 520 ml @ 250 mls/hr Q12H IV 04/22/17 12:00 04/22/17 23:58 Citalopram Hydrobromide (CeleXA) 40 mg DAILY PO 04/22/17 09:00 04/22/17 09:19 Folic Acid (Folate) 1 mg DAILY PO 04/22/17 10:00 04/22/17 10:39 Furosemide (Lasix) 40 mg DAILY PO 04/22/17 09:00 04/22/17 09:19 Gabapentin (Neurontin) 600 mg BID PO 04/22/17 10:00 04/22/17 21:50 Nadolol (Corgard) 20 mg DAILY PO 04/22/17 10:00 04/22/17 10:39 Thiamine HCl (Vitamin B1) 100 mg DAILY PO 04/22/17 10:00 04/27/17 10:00 04/22/17 10:41 Other Results Last 72 hours Impressions Foot MRI 04/22/17 0000 Signed Impressions: Service Date/Time: Saturday, April 22, 2017 11:05 - CONCLUSION: 1. No definite evidence for osteomyelitis. Soft tissue swelling and ulceration at the second toe. There is some cellulitis. 2. Advanced arthropathy in the midfoot especially the tarsometatarsal joints with joint space narrowing, subchondral cystic changes and hypertrophic changes. Mic Neal MD Foot X-Ray 04/21/17 0000 Signed Impressions: Service Date/Time: March 23:11 - CONCLUSION: 1. Soft tissue ulceration distally the second toe without radiographic evidence of bone destruction or foreign body. 2. Second through fifth hammertoe. 3. Chronic appearing arthropathy at Lisfranc joint and the first metatarsal phalangeal joints are sesamoids. Donte Arambula MD Laboratory Tests Test 04/21/17 22:40 04/22/17 05:40 White Blood Count 5.7 TH/MM3 5.5 TH/MM3 Red Blood Count 4.35 MIL/MM3 4.07 MIL/MM3 Hemoglobin 13.5 GM/DL 13.0 GM/DL Hematocrit 40.3 % 37.6 % Mean Corpuscular Volume 92.8 FL 92.4 FL Mean Corpuscular Hemoglobin 31.0 PG 32.0 PG Mean Corpuscular Hemoglobin Concent 33.5 % 34.7 % Red Cell Distribution Width 13.2 % 13.3 % Platelet Count 100 TH/MM3 99 TH/MM3 Mean Platelet Volume 10.2 FL 10.7 FL Neutrophils (%) (Auto) 74.4 % 68.7 % Lymphocytes (%) (Auto) 12.4 % 17.2 % Monocytes (%) (Auto) 11.9 % 11.4 % Eosinophils (%) (Auto) 0.8 % 1.4 % Basophils (%) (Auto) 0.5 % 1.3 % Neutrophils # (Auto) 4.3 TH/MM3 3.8 TH/MM3 Lymphocytes # (Auto) 0.7 TH/MM3 0.9 TH/MM3 Monocytes # (Auto) 0.7 TH/MM3 0.6 TH/MM3 Eosinophils # (Auto) 0.0 TH/MM3 0.1 TH/MM3 Basophils # (Auto) 0.0 TH/MM3 0.1 TH/MM3 CBC Comment DIFF FINAL AUTO DIFF Differential Comment AUTO DIFF CONFIRMED Erythrocyte Sedimentation Rate 28 mm/hr Platelet Estimate LOW Platelet Morphology Comment NORMAL Laboratory Tests Test 04/21/17 22:40 04/21/17 23:00 04/22/17 05:40 Blood Urea Nitrogen 15 MG/DL 13 MG/DL Creatinine 0.82 MG/DL 0.76 MG/DL Random Glucose 92 MG/DL 81 MG/DL Total Protein 7.4 GM/DL 7.2 GM/DL Albumin 3.4 GM/DL 3.2 GM/DL Calcium Level 8.8 MG/DL 8.5 MG/DL Alkaline Phosphatase 75 U/L 67 U/L Aspartate Amino Transf (AST/SGOT) 18 U/L 13 U/L Alanine Aminotransferase (ALT/SGPT) 25 U/L 22 U/L Total Bilirubin 0.7 MG/DL 0.9 MG/DL Sodium Level 136 MEQ/L 135 MEQ/L Potassium Level 4.1 MEQ/L 3.7 MEQ/L Chloride Level 102 MEQ/L 100 MEQ/L Carbon Dioxide Level 29.2 MEQ/L 28.7 MEQ/L Anion Gap 5 MEQ/L 6 MEQ/L Estimat Glomerular Filtration Rate 98 ML/MIN 107 ML/MIN C-Reactive Protein 4.63 MG/DL Lactic Acid Level 1.3 mmol/L Microbiology Date/Time Source Procedure Growth Status 04/21/17 23:05 Blood Peripheral Aerobic Blood Culture - Preliminary NO GROWTH IN 1 DAY Resulted 04/21/17 23:05 Blood Peripheral Anaerobic Blood Culture - Preliminary NO GROWTH IN 1 DAY Resulted 04/21/17 23:00 Blood Peripheral Aerobic Blood Culture - Preliminary NO GROWTH IN 1 DAY Resulted 04/21/17 23:00 Blood Peripheral Anaerobic Blood Culture - Preliminary NO GROWTH IN 1 DAY Resulted 04/21/17 23:10 Wound Toe Gram Stain - Final Resulted 04/21/17 23:10 Wound Culture - Preliminary Gram Positive Cocci Resulted Physical Exam Remarks Right lower extremity. Right second digit with hemorrhagic callus crusting erythema superficial pus noted, upon debridement no obvious deep abscess or exposed bone good bleeding noted Proximal leg with decreased erythema of the mid medial and lateral the most proximal aspect of the leg with induration cellulitis remains over the compartments feel soft without any gas/soft tissue emphysema or pain Distal pulses are palpable sensation is decreased below the ankle good range of motion of the foot and ankle and leg Assessment & Plan A/P Right second digit ulcer cellulitis superficial abscess, leg edema cellulitis After verbal informed written consent and appropriate timeout a bedside incision drainage and debridement took place. The patient's right lower extremity was scrubbed prepped and draped in usual aseptic fashion utilizing 15 blade incision and drainage to place of the distal aspect of the right second digit. Deep culture was taken bandage applied patient tolerated procedure well no anesthesia needed due to peripheral neuropathy. Bandage applied the foot ankle and leg was then wrapped and elevated. Continue IV antibiotics. There has been some improvement however I'm still concerned of the proximal cellulitis. MRI shows no signs of osteomyelitis therefore amputation is not indicated at this point. We'll follow-up 1-2 days Drake Echeverria DPM Apr 23, 2017 07:19
[2017-04-23 07:31] LABS: CHLORIDE 102 MEQ/L (98-107); SODIUM (NA) 137 MEQ/L (136-145)
[2017-04-23 07:34] LABS: CALCIUM 8.8 MG/DL (8.5-10.1)
[2017-04-23 07:35] LABS: ALBUMIN 3.3 GM/DL (3.4-5.0); BICARBONATE 32.1 MEQ/L (21.0-32.0); BLOOD UREA NITROGEN 10 MG/DL (7-18); GLUCOSE,RANDOM 104 MG/DL (74-106)
[2017-04-23 07:38] LABS: ALT (GPT) 29 U/L (12-78)
[2017-04-23 07:50] VITALS: BP 109/65; PULSE 65; RESP 20; TEMP 96.9; O2SAT 97
[2017-04-23 08:07] LABS: ALKALINE PHOSPHATASE 68 U/L (45-117); AST (GOT) 28 U/L (15-37); CREATININE 0.72 MG/DL (0.60-1.30); GLOMERULAR FILTRATION RATE 114 ML/MIN (>89); TOTAL BILIRUBIN ADULT 0.6 MG/DL (0.2-1.0); TOTAL PROTEIN 7.2 GM/DL (6.4-8.2)
[2017-04-23] MEDS: DOCUSATE SODIUM 50 MG/SENNA 8.6 MG TAB PO SCH ×2 (09:00→21:54)
[2017-04-23] MEDS: MULTIVITAMINS/MINERALS THERAPEUTIC TAB PO SCH (09:16)
[2017-04-23] MEDS: GABAPENTIN 300 MG CAP PO SCH ×2 (09:16→21:54)
[2017-04-23] MEDS: SODIUM CHLORIDE 0.9% FLUSH 10 ML FLUSH IV FLUSH SCH ×2 (09:17→21:54)
[2017-04-23] MEDS: NADOLOL 20 MG TAB PO SCH (09:17)
[2017-04-23] MEDS: FUROSEMIDE 40 MG TAB PO SCH (09:17)
[2017-04-23] MEDS: THIAMINE HCL 100 MG TAB PO SCH (09:17)
[2017-04-23] MEDS: FOLIC ACID 1 MG TAB PO SCH (09:17)
[2017-04-23] MEDS: CITALOPRAM HYDROBROMIDE 40 MG TAB PO SCH (09:17)
[2017-04-23] MEDS ORDERED: PHARMACY ORDERED LAB ONE (11:45)
[2017-04-23 11:50] VITALS: BP 105/63; PULSE 61; RESP 20; TEMP 96.4; O2SAT 98
[2017-04-23] MEDS: VANCOMYCIN INJ 2,000 MG in SODIUM CHLORID 0.9% 500 ML INJ 500 ML IV SCH (13:30)
--- NOTE | 2017-04-23 14:22 | HHI.PR ---
Subjective Remarks Follow-up right toe cellulitis. Patient seen and examined, lying in bed comfortably. States he slept well. Pain is well controlled on medication regimen. Podiatry and to see patient this morning, wound changed, wound culture sent and pending. Previous wound cultures reviewed showing Staphylococcus aureus. Continue on IV antibiotics. Awaiting further ID recommendations. Otherwise patient is stable and no acute complaints. Objective Vitals Vital Signs Date Time Temp Pulse Resp B/P (MAP) Pulse Ox O2 Delivery O2 Flow Rate FiO2 04/23/17 11:50 96.4 61 20 105/63 (77) 98 04/23/17 07:50 96.9 65 20 109/65 (80) 97 04/23/17 00:00 96.6 70 20 110/67 (81) 98 04/22/17 20:00 96.1 62 20 120/71 (87) 99 04/22/17 16:00 95.0 58 104/59 (74) 100 I/O 04/22/17 04/22/17 04/22/17 04/23/17 04/23/17 04/23/17 06:59 14:59 22:59 06:59 14:59 22:59 Intake Total 970 ml 2900 ml Output Total 1000 ml Balance 970 ml -1000 ml 2900 ml Intake Oral 420 ml 1200 ml IV Total 550 ml 1700 ml Output Urine Total 1000 ml # Voids 3 1 3 # Bowel Movements 0 0 Result Diagram: 04/22/17 0540 04/23/17 0708 Imaging Last Impressions Foot MRI 04/22/17 0000 Signed Impressions: Service Date/Time: Saturday, April 22, 2017 11:05 - CONCLUSION: 1. No definite evidence for osteomyelitis. Soft tissue swelling and ulceration at the second toe. There is some cellulitis. 2. Advanced arthropathy in the midfoot especially the tarsometatarsal joints with joint space narrowing, subchondral cystic changes and hypertrophic changes. Mic Neal MD Foot X-Ray 04/21/17 0000 Signed Impressions: Service Date/Time: March 23:11 - CONCLUSION: 1. Soft tissue ulceration distally the second toe without radiographic evidence of bone destruction or foreign body. 2. Second through fifth hammertoe. 3. Chronic appearing arthropathy at Lisfranc joint and the first metatarsal phalangeal joints are sesamoids. Donte Arambula MD Objective Remarks GENERAL: Well-developed, well-nourished patient in NAD. SKIN: Warm and dry. No rash. Right toe infection, wound dressing in place. HEAD: Normocephalic. Atraumatic. EYES: Pupils equal and round. No scleral icterus. No injection or drainage. ENT: No nasal bleeding or discharge. Mucous membranes pink and moist. NECK: Supple. Trachea midline. CARDIOVASCULAR: Regular rate and rhythm. S1, S2 noted. No murmur appreciated. RESPIRATORY: No accessory muscle use. Clear to auscultation. Breath sounds equal bilaterally. GASTROINTESTINAL: Abdomen soft, non-tender, nondistended. Normoactive bowel sounds x4. MUSCULOSKELETAL: Right foot cellulitis and leg cellulitis, erythema and swelling. NEUROLOGICAL: Awake and alert. No obvious cranial nerve deficits. Motor grossly within normal limits. 5/5 muscle strength in bilateral upper and lower extremities. Normal speech. PSYCHIATRIC: Appropriate mood and affect; insight and judgment normal. A/P Assessment and Plan Patient is a 52-year-old male with past medical history of cirrhosis of the liver, EtOH abuse, neuropathy, depression/anxiety, history of Tourette's syndrome, presented to the emergency room with right lower extremity erythema. Right second digit ulcer cellulitis superficial abscess, leg edema cellulitis Patient has been followed recently by a wheat washer. Podiatry was consulted and has been following. Foot MRI reviewed showing no definite evidence of osteomyelitis. Soft tissue swelling and ulceration of the second toe. Wound culture growing Staphylococcus aureus. Blood cultures no growth to date. Continue to follow. Infectious disease following, appreciate further input and recommendations. Most likely will need IV antibiotics outpatient. Continue IV antibiotics, vancomycin and Zosyn. Monitor creatinine. Pt's other chronic medical conditions: stable.(i.e cirrhosis of the liver, EtOH abuse, neuropathy, depression/anxiety, history of Tourette's syndrome). home meds have been resumed. [facility] protocol DVT proph: Heparin. Greta Clark Apr 23, 2017 14:22
[2017-04-23 15:30] VITALS: BP 104/67; PULSE 64; RESP 20; TEMP 96.2; O2SAT 98
[2017-04-23 20:00] VITALS: BP 112/70; PULSE 60; RESP 20; TEMP 96; O2SAT 98
--- NOTE | 2017-04-23 20:53 | HHI.IDPN ---
Note Infectious Disease Note Patient says he feels okay. No fever or chills. Wound culture has Staph aureus. Sensitivities pending. is a 52-year-old white male who presented to emergency department yesterday, 04/21/2017, with erythema and edema of his right second toe and also streaks of redness going up his leg and severe erythema of the right leg. PAST MEDICAL HISTORY 1. Alcohol abuse in the past. 2. Neuropathy 3. Cirrhosis of the liver 4. Anxiety/depression 5. Turrets syndrome 6. History of hernia repair, 7. Tonsillectomy. ALLERGIES NO KNOWN DRUG ALLERGIES. ANTIBIOTICS 1. Vancomycin. 2. Piperacillin/tazobactam. OBJECTIVE: Vital Signs Date Time Temp Pulse Resp B/P (MAP) Pulse Ox O2 Delivery O2 Flow Rate FiO2 04/23/17 15:30 96.2 64 20 104/67 (79) 98 04/23/17 11:50 96.4 61 20 105/63 (77) 98 04/23/17 07:50 96.9 65 20 109/65 (80) 97 04/23/17 00:00 96.6 70 20 110/67 (81) 98 Laboratory Tests Test 04/21/17 22:40 04/22/17 05:40 White Blood Count 5.7 TH/MM3 5.5 TH/MM3 Red Blood Count 4.35 MIL/MM3 4.07 MIL/MM3 Hemoglobin 13.5 GM/DL 13.0 GM/DL Hematocrit 40.3 % 37.6 % Mean Corpuscular Volume 92.8 FL 92.4 FL Mean Corpuscular Hemoglobin 31.0 PG 32.0 PG Mean Corpuscular Hemoglobin Concent 33.5 % 34.7 % Red Cell Distribution Width 13.2 % 13.3 % Platelet Count 100 TH/MM3 99 TH/MM3 Mean Platelet Volume 10.2 FL 10.7 FL Neutrophils (%) (Auto) 74.4 % 68.7 % Lymphocytes (%) (Auto) 12.4 % 17.2 % Monocytes (%) (Auto) 11.9 % 11.4 % Eosinophils (%) (Auto) 0.8 % 1.4 % Basophils (%) (Auto) 0.5 % 1.3 % Neutrophils # (Auto) 4.3 TH/MM3 3.8 TH/MM3 Lymphocytes # (Auto) 0.7 TH/MM3 0.9 TH/MM3 Monocytes # (Auto) 0.7 TH/MM3 0.6 TH/MM3 Eosinophils # (Auto) 0.0 TH/MM3 0.1 TH/MM3 Basophils # (Auto) 0.0 TH/MM3 0.1 TH/MM3 CBC Comment DIFF FINAL AUTO DIFF Differential Comment AUTO DIFF CONFIRMED Erythrocyte Sedimentation Rate 28 mm/hr Platelet Estimate LOW Platelet Morphology Comment NORMAL Laboratory Tests Test 04/21/17 22:40 04/21/17 23:00 04/22/17 05:40 04/23/17 07:08 Blood Urea Nitrogen 15 MG/DL 13 MG/DL 10 MG/DL Creatinine 0.82 MG/DL 0.76 MG/DL 0.72 MG/DL Random Glucose 92 MG/DL 81 MG/DL 104 MG/DL Total Protein 7.4 GM/DL 7.2 GM/DL 7.2 GM/DL Albumin 3.4 GM/DL 3.2 GM/DL 3.3 GM/DL Calcium Level 8.8 MG/DL 8.5 MG/DL 8.8 MG/DL Alkaline Phosphatase 75 U/L 67 U/L 68 U/L Aspartate Amino Transf (AST/SGOT) 18 U/L 13 U/L 28 U/L Alanine Aminotransferase (ALT/SGPT) 25 U/L 22 U/L 29 U/L Total Bilirubin 0.7 MG/DL 0.9 MG/DL 0.6 MG/DL Sodium Level 136 MEQ/L 135 MEQ/L 137 MEQ/L Potassium Level 4.1 MEQ/L 3.7 MEQ/L 4.1 MEQ/L Chloride Level 102 MEQ/L 100 MEQ/L 102 MEQ/L Carbon Dioxide Level 29.2 MEQ/L 28.7 MEQ/L 32.1 MEQ/L Anion Gap 5 MEQ/L 6 MEQ/L 3 MEQ/L Estimat Glomerular Filtration Rate 98 ML/MIN 107 ML/MIN 114 ML/MIN C-Reactive Protein 4.63 MG/DL Lactic Acid Level 1.3 mmol/L Microbiology Date/Time Source Procedure Growth Status 04/21/17 23:05 Blood Peripheral Aerobic Blood Culture - Preliminary NO GROWTH IN 2 DAYS Resulted 04/21/17 23:05 Blood Peripheral Anaerobic Blood Culture - Preliminary NO GROWTH IN 2 DAYS Resulted 04/21/17 23:00 Blood Peripheral Aerobic Blood Culture - Preliminary NO GROWTH IN 2 DAYS Resulted 04/21/17 23:00 Blood Peripheral Anaerobic Blood Culture - Preliminary NO GROWTH IN 2 DAYS Resulted 04/23/17 08:12 Wound Toe Gram Stain Pending Received 04/23/17 08:12 Wound Toe Wound Culture Pending Received 04/21/17 23:10 Wound Toe Gram Stain - Final Resulted 04/21/17 23:10 Wound Culture - Preliminary Staphylococcus Aureus Resulted Last Impressions Foot MRI 04/22/17 0000 Signed Impressions: Service Date/Time: Saturday, April 22, 2017 11:05 - CONCLUSION: 1. No definite evidence for osteomyelitis. Soft tissue swelling and ulceration at the second toe. There is some cellulitis. 2. Advanced arthropathy in the midfoot especially the tarsometatarsal joints with joint space narrowing, subchondral cystic changes and hypertrophic changes. Mic Neal MD Foot X-Ray 04/21/17 0000 Signed Impressions: Service Date/Time: March 23:11 - CONCLUSION: 1. Soft tissue ulceration distally the second toe without radiographic evidence of bone destruction or foreign body. 2. Second through fifth hammertoe. 3. Chronic appearing arthropathy at Lisfranc joint and the first metatarsal phalangeal joints are sesamoids. Donte Arambula MD PHYSICAL EXAMINATION GENERAL: No acute distress. He is awake, alert and oriented. HEENT: Head atraumatic. Extraocular movements grossly intact, pupils reactive to light. No icterus. Oropharynx moist mucosa without lesions. NECK: Supple without adenopathy. LUNGS: Clear breath sounds bilaterally. HEART: Regular S1 and S2 without murmurs, rubs or gallops. ABDOMEN: Bowel sounds present, soft, no tenderness appreciated. No masses palpable. EXTREMITIES: No clubbing or cyanosis or edema. 1+ edema at the right lower extremity. There is still erythema at the right lower extremity from the ankle to the knee. The right second toe is erythematous. tissue at the tuft post bedside debridement. The right 2nd toe is also enlarged at the distal aspect. SKIN: No diffuse rash. NEUROLOGIC: No gross focal findings. PSYCHIATRIC: Calm and cooperative. IMPRESSION 1. Soft tissue infection of the right second toe with ulceration. Culture showing gram-positive bacteria. Final ID is pending. 2. Cellulitis of the right lower extremity with infection spreading from the right second toe. 3. Plain x-ray of the right foot shows second through fifth hammertoe. RECOMMENDATIONS 1. Continue vancomycin 2. Stop piperacillin/Tazobactam 3. Follow the wound culture sensitivity of the staph. Plan on 10 days more of IV antibiotics. If MRSA will need vancomycin IV or Cubicin since it may be difficult to give Vancomycin more than once a day and maintain adequate levels. Sensitivity not yet available. If MSSA can give Ceftriaxone 2 grams IV daily x 10 days. Aldo Garland MD Apr 23, 2017 20:52
[2017-04-24] VITALS: BP 112/78; PULSE 68; RESP 20; TEMP 96.4; O2SAT 100
[2017-04-24] MEDS: VANCOMYCIN INJ 2,200 MG in SODIUM CHLORID 0.9% 500 ML INJ 500 ML IV SCH ×2 (00:15→12:09)
[2017-04-24] MEDS: HEPARIN SODIUM - SQ 10,000 UNITS/ML VIAL SQ SCH ×3 (06:11→21:19)
--- NOTE | 2017-04-24 07:18 | PD.POD ---
Subjective Pain score: 1 Remarks Improving Past Med/Surg/Social History Social History Smoking Status: Former Smoker Objective Vital Signs Vital Signs Date Time Temp Pulse Resp B/P (MAP) Pulse Ox O2 Delivery O2 Flow Rate FiO2 04/24/17 00:00 96.4 68 20 112/78 (89) 100 04/23/17 20:00 96.0 60 20 112/70 (84) 98 04/23/17 15:30 96.2 64 20 104/67 (79) 98 04/23/17 11:50 96.4 61 20 105/63 (77) 98 04/23/17 07:50 96.9 65 20 109/65 (80) 97 Coded Allergies: No Known Allergies (Unverified Allergy, Unknown, 04/22/17) Medications and IVs Administered Medications Medications (Trade) Dose Ordered Sig/Darian Route PRN Reason Start Time Stop Time Status Last Admin Dose Admin Sodium Chloride (NS Flush) 2 ml BID IV FLUSH 04/22/17 09:00 04/23/17 21:54 Heparin Sodium (Porcine) (Heparin Inj) 5,000 units Q8HR SQ 04/22/17 08:00 04/24/17 06:11 Senna/Docusate Sodium (Bella-Colace) 1 tab BID PO 04/22/17 09:00 04/23/17 21:54 Citalopram Hydrobromide (CeleXA) 40 mg DAILY PO 04/22/17 09:00 04/23/17 09:17 Folic Acid (Folate) 1 mg DAILY PO 04/22/17 10:00 04/23/17 09:17 Furosemide (Lasix) 40 mg DAILY PO 04/22/17 09:00 04/23/17 09:17 Gabapentin (Neurontin) 600 mg BID PO 04/22/17 10:00 04/23/17 21:54 Nadolol (Corgard) 20 mg DAILY PO 04/22/17 10:00 04/23/17 09:17 Multivitamins/ Minerals Therapeutic (Theragran M Tab) 1 tab DAILY PO 04/23/17 09:00 04/28/17 08:59 04/23/17 09:16 Thiamine HCl (Vitamin B1) 100 mg DAILY PO 04/22/17 10:00 04/27/17 10:00 04/23/17 09:17 Vancomycin HCl 2200 mg/Sodium Chloride 522 ml @ 250 mls/hr Q12H IV 04/24/17 00:00 04/24/17 00:15 Other Results Laboratory Tests Test 04/23/17 07:08 Blood Urea Nitrogen 10 MG/DL Creatinine 0.72 MG/DL Random Glucose 104 MG/DL Total Protein 7.2 GM/DL Albumin 3.3 GM/DL Calcium Level 8.8 MG/DL Alkaline Phosphatase 68 U/L Aspartate Amino Transf (AST/SGOT) 28 U/L Alanine Aminotransferase (ALT/SGPT) 29 U/L Total Bilirubin 0.6 MG/DL Sodium Level 137 MEQ/L Potassium Level 4.1 MEQ/L Chloride Level 102 MEQ/L Carbon Dioxide Level 32.1 MEQ/L Anion Gap 3 MEQ/L Estimat Glomerular Filtration Rate 114 ML/MIN Microbiology Date/Time Source Procedure Growth Status 04/21/17 23:05 Blood Peripheral Aerobic Blood Culture - Preliminary NO GROWTH IN 2 DAYS Resulted 04/21/17 23:05 Blood Peripheral Anaerobic Blood Culture - Preliminary NO GROWTH IN 2 DAYS Resulted 04/21/17 23:00 Blood Peripheral Aerobic Blood Culture - Preliminary NO GROWTH IN 2 DAYS Resulted 04/21/17 23:00 Blood Peripheral Anaerobic Blood Culture - Preliminary NO GROWTH IN 2 DAYS Resulted 04/23/17 08:12 Wound Toe Gram Stain Pending Received 04/23/17 08:12 Wound Toe Wound Culture Pending Received 04/21/17 23:10 Wound Toe Gram Stain - Final Resulted 04/21/17 23:10 Wound Culture - Preliminary Staphylococcus Aureus Resulted Physical Exam Remarks Right lower extremity. Right second digit with viable minimal draining ulcer Proximal leg with decreased erythema of the mid medial and lateral the most proximal aspect of the leg, improved. Distal pulses are palpable sensation is decreased below the ankle good range of motion of the foot and ankle and leg Assessment & Plan A/P Right second digit ulcer cellulitis superficial abscess, leg edema cellulitis Doing well, once ABX Arranged ok to FU out pt. Post op shoe ordeedr, reviewed dry bandage to digit and wrapping of the foot ankle and leg daily, FU out pt see orders Drake Echeverria DPM Apr 24, 2017 07:18
[2017-04-24 08:00] VITALS: TEMP 96.9
--- NOTE | 2017-04-24 08:25 | RADRPT ---
EXAM DATE/TIME: 04/24/2017 07:46 [facility] COMPARISON: No previous studies available for comparison. INDICATIONS : Post PICC line placement. MEDICAL HISTORY : None. SURGICAL HISTORY : None. ENCOUNTER: Initial ACUITY: 1 day PAIN SCORE: 0/10 LOCATION: Bilateral chest FINDINGS: There is a PICC line in place from the right arm. The tip is directed superiorly into the right inter nal jugular vein region. The distal aspect of the PICC line projects off the superior aspect of the i mage into the neck. The tip is not seen. The heart size is normal. The lungs are clear. No effusion i s seen. CONCLUSION: PICC line in place with the tip directed superiorly into the right internal jugular vein. The superio r aspect of the PICC line is not seen. Donte Rojas MD on April 24, 2017 at 8:21 Board Certified Radiologist. This report was verified electronically.
[2017-04-24] MEDS: THIAMINE HCL 100 MG TAB PO SCH (09:41)
[2017-04-24] MEDS: DOCUSATE SODIUM 50 MG/SENNA 8.6 MG TAB PO SCH ×2 (09:42→21:20)
[2017-04-24] MEDS: NADOLOL 20 MG TAB PO SCH (09:42)
[2017-04-24] MEDS: MULTIVITAMINS/MINERALS THERAPEUTIC TAB PO SCH (09:42)
[2017-04-24] MEDS: GABAPENTIN 300 MG CAP PO SCH ×2 (09:42→21:20)
[2017-04-24] MEDS: FUROSEMIDE 40 MG TAB PO SCH (09:42)
[2017-04-24] MEDS: CITALOPRAM HYDROBROMIDE 40 MG TAB PO SCH (09:42)
[2017-04-24] MEDS: FOLIC ACID 1 MG TAB PO SCH (09:42)
[2017-04-24] MEDS: SODIUM CHLORIDE 0.9% FLUSH 10 ML FLUSH IV FLUSH SCH ×2 (09:43→21:20)
--- NOTE | 2017-04-24 10:40 | RADRPT ---
EXAM DATE/TIME: 04/24/2017 09:47 [facility] COMPARISON: CHEST SINGLE AP, April 24, 2017, 7:46. INDICATIONS : PICC line adjustment. MEDICAL HISTORY : None. SURGICAL HISTORY : None. ENCOUNTER: Subsequent ACUITY: 1 day PAIN SCORE: 0/10 LOCATION: Bilateral chest FINDINGS: There is a PICC line in place from the right arm. The tip is now seen in the SVC. The heart size is n ormal. The lungs are clear. CONCLUSION: Right PICC line with the tip in the SVC. Donte Rojas MD on April 24, 2017 at 10:38 Board Certified Radiologist. This report was verified electronically.
[2017-04-24 12:00] VITALS: BP 112/77; PULSE 69; RESP 16; TEMP 95.8; O2SAT 98
--- NOTE | 2017-04-24 12:48 | HHI.PR ---
Subjective Remarks Follow-up right toe cellulitis. Patient seen and examined, sitting up in bed comfortably. Denies any new acute complaints. Sensitivity noted for wound culture. Awaiting final ID recommendations. Patient is afebrile and vital signs stable. Objective Vitals Vital Signs Date Time Temp Pulse Resp B/P (MAP) Pulse Ox O2 Delivery O2 Flow Rate FiO2 04/24/17 08:00 96.9 04/24/17 00:00 96.4 68 20 112/78 (89) 100 04/23/17 20:00 96.0 60 20 112/70 (84) 98 04/23/17 15:30 96.2 64 20 104/67 (79) 98 I/O 04/23/17 04/23/17 04/23/17 04/24/17 04/24/17 04/24/17 07:00 15:00 23:00 07:00 15:00 23:00 Intake Total 2900 ml 50 ml 1950 ml 1460 ml Output Total 900 ml Balance 2900 ml 50 ml 1050 ml 1460 ml Intake Oral 1200 ml 1380 ml 960 ml IV Total 1700 ml 50 ml 570 ml 500 ml Output Urine Total 900 ml # Voids 3 4 3 # Bowel Movements 0 1 0 Result Diagram: 04/22/17 0540 04/23/17 0708 Imaging Last Impressions Chest X-Ray 04/24/17 0000 Signed Impressions: Service Date/Time: Monday, April 24, 2017 07:46 - CONCLUSION: PICC line in place with the tip directed superiorly into the right internal jugular vein. The superior aspect of the PICC line is not seen. Donte Rojas MD Foot MRI 04/22/17 0000 Signed Impressions: Service Date/Time: Saturday, April 22, 2017 11:05 - CONCLUSION: 1. No definite evidence for osteomyelitis. Soft tissue swelling and ulceration at the second toe. There is some cellulitis. 2. Advanced arthropathy in the midfoot especially the tarsometatarsal joints with joint space narrowing, subchondral cystic changes and hypertrophic changes. Mic Neal MD Foot X-Ray 04/21/17 0000 Signed Impressions: Service Date/Time: March 23:11 - CONCLUSION: 1. Soft tissue ulceration distally the second toe without radiographic evidence of bone destruction or foreign body. 2. Second through fifth hammertoe. 3. Chronic appearing arthropathy at Lisfranc joint and the first metatarsal phalangeal joints are sesamoids. Donte Arambula MD Objective Remarks GENERAL: Well-developed, well-nourished patient in NAD. SKIN: Warm and dry. No rash. Right toe infection, wound dressing in place. HEAD: Normocephalic. Atraumatic. EYES: Pupils equal and round. No scleral icterus. No injection or drainage. ENT: No nasal bleeding or discharge. Mucous membranes pink and moist. NECK: Supple. Trachea midline. CARDIOVASCULAR: Regular rate and rhythm. S1, S2 noted. No murmur appreciated. RESPIRATORY: No accessory muscle use. Clear to auscultation. Breath sounds equal bilaterally. GASTROINTESTINAL: Abdomen soft, non-tender, nondistended. Normoactive bowel sounds x4. MUSCULOSKELETAL: Right foot cellulitis and leg cellulitis, erythema and swelling. NEUROLOGICAL: Awake and alert. No obvious cranial nerve deficits. Motor grossly within normal limits. 5/5 muscle strength in bilateral upper and lower extremities. Normal speech. PSYCHIATRIC: Appropriate mood and affect; insight and judgment normal. A/P Assessment and Plan Patient is a 52-year-old male with past medical history of cirrhosis of the liver, EtOH abuse, neuropathy, depression/anxiety, history of Tourette's syndrome, presented to the emergency room with right lower extremity erythema. Right second digit ulcer cellulitis superficial abscess, leg edema cellulitis Patient has been followed recently by a general magistrate. Podiatry was consulted and has been following. Cleared for discharge. Foot MRI reviewed showing no definite evidence of osteomyelitis. Soft tissue swelling and ulceration of the second toe. Wound culture growing Staphylococcus aureus. Sensitivity noted. Blood cultures no growth to date. Continue to follow. Infectious disease following, appreciate further input and recommendations. Most likely will need IV antibiotics outpatient. Awaiting final recommendations. Continue IV antibiotics, vancomycin. Monitor creatinine. PICC line inserted. Pt's other chronic medical conditions: stable.(i.e cirrhosis of the liver, EtOH abuse, neuropathy, depression/anxiety, history of Tourette's syndrome). home meds have been resumed. [facility] protocol DVT proph: Heparin. Discharge Planning Awaiting final infectious disease recommendations for IV antibiotics. Hopeful discharge later this afternoon or tomorrow morning. Greta Clark Apr 24, 2017 12:48
[2017-04-24 16:00] VITALS: BP 120/86; PULSE 64; RESP 16; TEMP 96.3; O2SAT 95
[2017-04-24 20:00] VITALS: BP 108/66; PULSE 69; RESP 20; TEMP 97; O2SAT 98
[2017-04-25] VITALS: BP 111/70; PULSE 71; RESP 20; TEMP 96.7; O2SAT 96
[2017-04-25] MEDS: VANCOMYCIN INJ 2,200 MG in SODIUM CHLORID 0.9% 500 ML INJ 500 ML IV SCH ×2 (00:04→14:21)
[2017-04-25] MEDS: HEPARIN SODIUM - SQ 10,000 UNITS/ML VIAL SQ SCH ×2 (06:21→14:22)
[2017-04-25 08:00] VITALS: BP 128/85; PULSE 63; RESP 14; TEMP 96.5; O2SAT 100
--- NOTE | 2017-04-25 08:46 | HHI.DS ---
Discharge Summary Admission Date Apr 21, 2017 at 23:58 Discharge Date: Apr 25, 2017 Admitting Diagnosis Right toe ulcer with cellulitis and lymphangitis, r/o osteomyelitis (1) Cellulitis of right lower extremity ICD Code: L03.115 - Cellulitis of right lower limb Status: Acute (2) Toe ulcer, right ICD Code: L97.519 - Non-pressure chronic ulcer of other part of right foot with unspecified severity Status: Acute Procedures Bedside I&D of right second digit ulcer Brief History - From Admission Patient is a 52-year-old male with past medical history of cirrhosis of the liver, EtOH abuse, neuropathy, depression/anxiety, history of Tourette's syndrome, presented to the emergency room with right lower extremity erythema. Patient states he does have recurrent infection of his second toe. Has not seen a combination technician in many years, the last one he saw was Dr. Monge who had trimmed his toenail for him. He noticed that the nail has been getting bigger and bulky and he decided to cut it and peel it off. Yesterday when he woke up, he noted redness going up to his knee. He denies any pain. He denies any fevers or chills. He states that the ulceration at the base of his toe has not been draining however yesterday started draining clear fluid. They did get a swab in the emergency room. He has been cleaning it with hydrogen peroxide. Otherwise, he has no other complaints. He denies any chest pain, shortness of breath, nausea or vomiting, abdominal pain. CBC/BMP: 04/22/17 0540 04/23/17 0708 Significant Findings Laboratory Tests Test 04/23/17 07:08 04/23/17 13:10 Albumin 3.3 GM/DL (3.4-5.0) Carbon Dioxide Level 32.1 MEQ/L (21.0-32.0) Anion Gap 3 MEQ/L (5-15) Vancomycin Level Trough 13.1 MCG/ML (5.0-10.0) Imaging Last Impressions Chest X-Ray 04/24/17 0000 Signed Impressions: Service Date/Time: Monday, April 24, 2017 09:47 - CONCLUSION: Right PICC line with the tip in the SVC. Donte Rojas MD Foot MRI 04/22/17 0000 Signed Impressions: Service Date/Time: Saturday, April 22, 2017 11:05 - CONCLUSION: 1. No definite evidence for osteomyelitis. Soft tissue swelling and ulceration at the second toe. There is some cellulitis. 2. Advanced arthropathy in the midfoot especially the tarsometatarsal joints with joint space narrowing, subchondral cystic changes and hypertrophic changes. Mic Neal MD Foot X-Ray 04/21/17 0000 Signed Impressions: Service Date/Time: March 23:11 - CONCLUSION: 1. Soft tissue ulceration distally the second toe without radiographic evidence of bone destruction or foreign body. 2. Second through fifth hammertoe. 3. Chronic appearing arthropathy at Lisfranc joint and the first metatarsal phalangeal joints are sesamoids. Donte Arambula MD PE at Discharge GENERAL: Well-developed, well-nourished patient in NAD. SKIN: Warm and dry. No rash. Right toe infection, wound dressing in place. HEAD: Normocephalic. Atraumatic. EYES: Pupils equal and round. No scleral icterus. No injection or drainage. ENT: No nasal bleeding or discharge. Mucous membranes pink and moist. NECK: Supple. Trachea midline. CARDIOVASCULAR: Regular rate and rhythm. S1, S2 noted. No murmur appreciated. RESPIRATORY: No accessory muscle use. Clear to auscultation. Breath sounds equal bilaterally. GASTROINTESTINAL: Abdomen soft, non-tender, nondistended. Normoactive bowel sounds x4. MUSCULOSKELETAL: Right foot cellulitis and leg cellulitis, erythema and swelling. NEUROLOGICAL: Awake and alert. No obvious cranial nerve deficits. Motor grossly within normal limits. 5/5 muscle strength in bilateral upper and lower extremities. Normal speech. PSYCHIATRIC: Appropriate mood and affect; insight and judgment normal. Pt update on day of discharge Follow-up right toe ulcer/cellulitis. Patient seen and examined, sitting up in bed. States he slept well. Pain is well controlled. All vital signs are stable. Labs are stable. Awaiting arrangements for outpatient IV antibiotics. Podiatry in to see patient today. Hospital Course Patient is a 52-year-old male with past medical history of cirrhosis of the liver, EtOH abuse, neuropathy, depression/anxiety, history of Tourette's syndrome, presented to the emergency room with right lower extremity erythema. Right second digit ulcer cellulitis superficial abscess, leg edema cellulitis, patient has been following a combination technician patient. Podiatry was consulted and followed patient throughout hospitalization. A foot MRI was done showing no definite evidence of osteomyelitis. Soft tissue swelling and ulceration of the second toe was seen. Wound culture grew Staphylococcus aureus, MSSA. Blood cultures were negative today. Was on vancomycin during hospitalization, discharged on ceftriaxone 2 g IV every 24 hours for 5 days, and date 04/29/17. PICC line was inserted and IV antibiotics arranged outpatient. Home health care ordered and being arranged. Pt's other chronic medical conditions: stable.( i.e cirrhosis of the liver, EtOH abuse, neuropathy, depression/anxiety, history of Tourette's syndrome). Pt Condition on Discharge: Stable Discharge Disposition: Disch w/ Home Health Serv Discharge Time: > 30 minutes Discharge Instructions DIET: Follow Instructions for: Heart Healthy Diet Speech Therapy-Diet Recommends: Regular Activities you can perform: Regular-No Restrictions Follow up Referrals: PCP Follow-up - 1 Week Podiatry - 1 Week New Medications: Multiple Vitamins W/ Minerals (Thera M Plus) 1 Tab 1 TAB PO DAILY for supplementation for 30 Days, #30 TAB Thiamine HCl (Gnp Vitamin B-1) 100 Mg Tab 100 MG PO DAILY for supplementation for 30 Days, #30 TAB Continued Medications: Alprazolam (Alprazolam) 0.5 Mg Tab 0.5 MG PO Q8H PRN for ANXIETY, TAB 0 Refills Citalopram (Citalopram) 40 Mg Tab 40 MG PO DAILY for Control Depression, #30 TAB 0 Refills Folic Acid (Folic Acid) 0.8 Mg Tab 800 MCG PO DAILY for Nutritional Supplement, TAB 0 Refills Furosemide (Lasix) 40 Mg Tab 40 MG PO DAILY, #30 TAB 0 Refills Gabapentin (Gabapentin) 600 Mg Tab 600 MG PO BID, #60 TAB 0 Refills Nadolol (Nadolol) 20 Mg Tab 20 MG PO DAILY, #30 TAB 0 Refills Greta Clark Apr 25, 2017 08:46
--- NOTE | 2017-04-25 08:47 | HHI.DCPOC ---
Discharge Care Plan Diagnosis: (1) Toe ulcer, right (2) Cellulitis of right lower extremity Goals to Promote Your Health * To prevent worsening of your condition and complications * To maintain your health at the optimal level Directions to Meet Your Goals Take your medications as prescribed Follow your dietary instruction Follow activity as directed Keep your appointments as scheduled Take your immunizations and boosters as scheduled If your symptoms worsen call your PCP, if no PCP go to Urgent Care Center or Emergency Room Smoking is Dangerous to Your Health. Avoid second hand smoke Call the 24-hour hour crisis hotline for domestic abuse at Greta Clark Apr 25, 2017 08:47
[2017-04-25] MEDS ORDERED: THIA100 PO (08:48)
[2017-04-25] MEDS ORDERED: THERM PO (08:48)
--- NOTE | 2017-04-25 09:10 | HHI.FF ---
Infusion Therapy Location of Infusion Therapy: Home Health Care IV Infusion Order Patient Information Patient Weight 107.9 kg Diagnosis: (1) Cellulitis of right lower extremity (2) Acute lymphangitis of right lower extremity (3) Toe ulcer, right Coded Allergies: No Known Allergies (Unverified Allergy, Unknown, 04/22/17) Administer Medication Ceftriaxone 2 grams IV q 24 hours Stop Treatment: May 01, 2007 Additional Information Venous access: PICC Line Additional Instructions [x] Peripheral flush and dressing changes per protocol [x] Implanted port and central linen supply load builder: * Implanted port: 10 ml Normal Saline followed by 5 ml Heparin 100 units/ml Heparin flush after each use and monthly to maintain. [] May leave port accessed during therapy. [] May leave peripheral site accessed for duration of therapy. [x] If patient has SOB or respiratory distress, check oxygen saturation. If less than 90% or clinical signs of respiratory distress, administer oxygen at 2 L/min. via nasal cannula and notify physician. [x] Anaphylaxis/Reaction orders: * Stop infusion. * Keep IV line open with saline flush. * Notify physician. * Monitor vital signs every 15 minutes until symptoms resolve. * Check Oxygen saturation; Oxygen at 2 L/min. via nasal cannula if less than 90% or clinical signs of respiratory distress. * Administer diphenhydramine (Benadryl) 25 mg IV STAT, (unless patient has received as pre-med). May repeat once, if necessary. * Solu-Cortef 250 mg IVP over 30-60 seconds, use 100 mg vials for each dissolution. * Epinephrine (1mg/1 ml) 0.3 mg subcutaneously or IVP now with any signs of respiratory distress. * Check with physician for new additional pre-med orders if patient is re- challenged or re-treated. [x] May remove PICC line when treatment complete, after confirming with Physician. [x] If the patient is admitted to the hospital, the ED, or transferred via [facility] , complete transfer form including medication reconciliation order sheet. Aldo Garland MD Apr 25, 2017 09:10
--- NOTE | 2017-04-25 09:49 | HHI.FF ---
Face to Face Verification Diagnosis: (1) Toe ulcer, right (2) Cellulitis of right lower extremity I have seen patient Donovan Mohr on 04/25/17. My clinical findings support the need for the requested home health care services because: I certify that my clinical findings support that this patient is homebound because: Greta Clark Apr 25, 2017 09:49
[2017-04-25] MEDS: GABAPENTIN 300 MG CAP PO SCH (10:26)
[2017-04-25] MEDS: FOLIC ACID 1 MG TAB PO SCH (10:26)
[2017-04-25] MEDS: DOCUSATE SODIUM 50 MG/SENNA 8.6 MG TAB PO SCH (10:26)
[2017-04-25] MEDS: CITALOPRAM HYDROBROMIDE 40 MG TAB PO SCH (10:26)
[2017-04-25] MEDS: FUROSEMIDE 40 MG TAB PO SCH (10:26)
[2017-04-25] MEDS: THIAMINE HCL 100 MG TAB PO SCH (10:26)
[2017-04-25] MEDS: NADOLOL 20 MG TAB PO SCH (10:27)
[2017-04-25] MEDS: MULTIVITAMINS/MINERALS THERAPEUTIC TAB PO SCH (10:27)
[2017-04-25] MEDS: SODIUM CHLORIDE 0.9% FLUSH 10 ML FLUSH IV FLUSH SCH (10:27)
[2017-04-25] MEDS ORDERED: PHARMACY ORDERED LAB ONE (11:45)
[2017-04-25 12:00] VITALS: BP 119/80; PULSE 67; RESP 16; TEMP 95.7; O2SAT 99
[2017-04-25 16:00] VITALS: BP 117/78; PULSE 64; RESP 14; TEMP 96.8; O2SAT 97
== END 2017-04-25 19:01 | disposition home or self-care (01) ==
LOC: PHED 21:47 → PHEDA 23:58 → PH3B 04-22 00:41
PROVIDERS: ADMIT Hospitalist; ATTEND Hospitalist
DX: L97.519 Non-pressure chronic ulcer of other part of right foot with unspecified severity (principal); L03.031 Cellulitis of right toe; L03.115 Cellulitis of right lower limb; A49.01 Methicillin susceptible Staphylococcus aureus infection, unspecified site; K70.30 Alcoholic cirrhosis of liver without ascites; F10.10 Alcohol abuse, uncomplicated; E87.1 Hypo-osmolality and hyponatremia; F32.9 Major depressive disorder, single episode, unspecified; F41.9 Anxiety disorder, unspecified; F95.2 Tourette's disorder; G62.9 Polyneuropathy, unspecified; M12.9 Arthropathy, unspecified; M20.41 Other hammer toe(s) (acquired), right foot; Z87.891 Personal history of nicotine dependence
CPT/HCPCS: 36569; 71045; 73630; 73720; 76937; 80053; 80202; 83605; 85025; 85610; 85652; 85730; 86140; 86403; 87040; 87070; 87147; 87186; 87205; 96365; 96366; 96367; 96368; 96372; 99285; A9579; G0378; J1644; J2543; J3370; J7040; J7050